=== PATIENT | male | born 1975 | race Two or more races ===

== ENCOUNTER 2025-01-21 15:27 | Outpatient (AMB) | payer MEDICAID, SELFPAY ==
[2025-01-21 15:34] VITALS: BP 151/89; PULSE 91; RESP 18; TEMP 36.8; O2SAT 98; BMI 24.0
--- NOTE | 2025-01-21 15:34 | GSCOFFNT_ITS ---
Vital Signs - [facility] 01/21/25 15:34 Height 1.73 m Height Method Measured Weight 71.809 kg Weight Measurement Method Standing Scale BMI 24.0 BP 151/89 H Blood Pressure Source Automatic Cuff Blood Pressure Location Left Upper Arm Position Sitting Respiration 18 Pulse 91 Pulse Source Monitor Temp 98.3 F Temp Source Temporal Artery Scan Pulse Oximetry (%) 98 Oxygen Delivery Method Room Air Med/Allergies Allergies & Medications Allergies Penicillins Allergy (Verified 01/21/25 15:35) Medication Reconciliation imiquimod 5 % topical cream packet 1 applic topical .COMPLEX Anal warts #24 ea 01/21/25 [Rx] MA Intake Visit Data Collection New Patient or Established: Established Patient (seen at [facility] within 3 years) Seen by Clinical Staff ONLY (RN/MA): No Reason for Visit:: REFERRAL HEMORRHOIDS Pain Present Currently: No Pain Scale Used: Carbajal-Olguin/Numerical Mixer Wet Pour Required: Yes PCP or OBGYN visit in last 3 months: Yes Hx Now: No Do You Feel Safe at Home: Yes Authorities Contacted: N/A Smoking Status Smoking Status: Never smoker Immunization / Flu Flu Vaccine in the Last 12 Months: No Flu Vaccine Exclusion Criteria: No Exclusion Criteria Past Medical History Social History SMOKING STATUS: Smoking status: Never smoker HPI HPI Narrative HISTORY OF PRESENT ILLNESS I, Leyda Villarreal, have obtained verbal consent from the patient, to be recorded during this encounter which may include, but not limited to, medical history, examination, treatment plans, and relevant health information.? Patient was informed that recording will be read and reviewed by myself before inclusion in the medical chart. The patient is a 49-year-old male who presents for evaluation of hemorrhoids. Spoke to pt with in-person parts interpreter He has been experiencing hemorrhoids for approximately 4 to 5 years, with daily drainage that appears as sticky water with a yellowish hue upon removal of the gauze. The drainage originates from the skin around the anus. He reports external hemorrhoids, associated pain, and itching, but no bleeding. His bowel movements are irregular, sometimes requiring straining, and occur up to three times a day. Despite consuming large amounts of water, he experiences const ipation. He has not undergone a colonoscopy. He has noticed that the lesions increase in size when irritated and decrease when not. He has not undergone any procedures for his hemorrhoids, only using creams and ibuprofen for management. He has not been diagnosed with HPV and expresses concern about the potential risk of cancer, as he has never been referred to a specialist and has only received topical treatments. He was previously prescribed a small gel tablet for constipation, which initially provided relief but later became ineffective. He is currently taking probiotics due to stomach inflammation after eating or drinking. He has diabetes, with his last A1c being 6.1, and takes pills for his diabetes. He also has cholesterol issues and takes medication for his cholesterol. PMH: HLD, DMII (last A1c 6.1) PSHx: Remote Appendectomy Meds: PO meds for DM, no antiplt or anticoagulation Allergies: PCN Family hx: No known malignancies Social hx: Nonsmoker ROS Review of Systems Systems Reviewed: All systems reviewed, normal except as documented Objective/Exam General General Appearance: alert, cooperative and well groomed Resp Respiratory exam: Absent respiratory distress Rectal Rectal exam: Present other (verrucae at the anterior anus, no sign of perianal fistula. Normal [place], no internal hemorrhoids seen on anoscopy) Assessment & Plan Diagnosis / Problem List (1) Anal wart: Status: Acute Assessment & Plan: The symptoms and physical examination findings are consistent with anal warts. A prescription for imiquimod cream has been provided, to be applied three times weekly for a maximum duration of 16 weeks. If the warts persist or cause discomfort, surgical removal may be considered. (2) Encounter for screening colonoscopy: Status: Acute Assessment & Plan: A colonoscopy has been recommended due to age, with the procedure likely to be scheduled towards the end of 02/2025. A medication will be prescribed to cleanse the system prior to the procedure, which may induce diarrhea. The risks and benefits of the procedure have been discussed, including the potential for bleeding if polyps are removed and the rare risk of colon perforation necessitating emergency surgery. Sedation will be provided during the colonoscopy for comfort. All questions were answered and pt is agreeable to proceeding Office Procedures GNS Level of Care Nursing/Assessment Patient Status: Established Patient Nursing Assessment/Reassesment: Medication Reconciliation, Update PMH in EMR and Vital Signs Coordination of Care: Complex Care and Chronic Disease 1-5, Education Complex Pt/Fam, Consent,records obtained, informed consent, Results/Orders obtained and Staff clarify orders Established Patient Charge Established Patient Point Assignment: 95 Established Patient Point Charge: EP Level 3 (80-115) Patient Portal Questionaires Social History Tobacco History Smoking Status: Never smoker Domestic Abuse History Do You Feel Safe at Home: Yes Review of Systems Report any current symptoms Only answer those that you have currently: Past Medical History Past Medical History Have you ever been diagnosed with any of the following:
== END 2025-01-21 16:11 | disposition home or self-care (01) ==
LOC: HODSRG 15:27
PROVIDERS: PCP Physician Assistant; Referring Provider Physician Assistant; Supervising Provider Surgery; Visit Provider Surgery
DX: A63.0 Anogenital (venereal) warts (principal); Z12.11 Encounter for screening for malignant neoplasm of colon; E11.9 Type 2 diabetes mellitus without complications
CPT/HCPCS: 99213; G0463

== ENCOUNTER 2025-02-26 10:35 | Day surgery (SDC) | payer MEDICAID, SELFPAY ==
[2025-02-26] VITALS (11 sets, daily range): BP systolic 118–157; BP diastolic 76–105; PULSE 65–95; RESP 16–18; TEMP 36.5–36.9; O2SAT 92–98; BMI 22.0
[2025-02-26] MEDS: fentaNYL CIT INJ 50 mCg/ML AMP 2ML (ASD USE ONLY) IVP (12:20)
[2025-02-26] MEDS: RINGERS LACTATED 500 ML 500 ML 20 ML IV (12:20)
[2025-02-26] MEDS: MIDAZOLAM INJ 1 MG/ML VIAL 2 ML (ASD USE ONLY) 2 MG IVP (12:20)
== END 2025-02-26 13:05 | disposition home or self-care (01) ==
PROVIDERS: PCP Physician Assistant; Referring Provider Surgery; Visit Provider Surgery
PROC: 0DBE8ZX Excision of Large Intestine, Via Natural or Artificial Opening Endoscopic, Diagnostic (ICD-10-PCS; CPT 45380; principal; 2025-02-26 11:30)
DX: Z12.11 Encounter for screening for malignant neoplasm of colon (principal); A63.0 Anogenital (venereal) warts; K57.30 Diverticulosis of large intestine without perforation or abscess without bleeding; E78.5 Hyperlipidemia, unspecified; E11.9 Type 2 diabetes mellitus without complications
CPT/HCPCS: 45378; A4649; J1200; J2250; J3010; J7120